=== PATIENT | female | born 1985 | race Caucasian/White ===

== ENCOUNTER 2018-01-10 18:40 | Emergency (ER) | payer MEDICAID ==
[~2018-01-10] VITALS: Ht 165.1 cm; Wt 70.8 kg
[~2018-01-10 18:40] MED LIST: CHLO473M3 PO
[2018-01-10 18:45] VITALS: BP 113/65
[2018-01-10] MEDS ORDERED: NO HOME MEDS (19:01)
[2018-01-10] MEDS ORDERED: MOME17SP BOTHNARES (19:18)
== END 2018-01-10 19:45 | disposition home or self-care (01) ==
LOC: ER 18:41
DX: J30.2 Other seasonal allergic rhinitis (principal); F15.90 Other stimulant use, unspecified, uncomplicated; Z79.899 Other long term (current) drug therapy; Z59.0 Homelessness; Z56.0 Unemployment, unspecified
CPT/HCPCS: 99283

== ENCOUNTER 2018-03-10 17:41 | Emergency (ER) | payer OTHER ==
[~2018-03-10] VITALS: Ht 162.6 cm; Wt 71.7 kg
[~2018-03-10 17:41] MED LIST changes: -CHLO473M3 PO; +NO HOME MEDS
[2018-03-10 17:42] VITALS: BP 123/77
[2018-03-10] MEDS ORDERED: ketorolac trometh inj. 60 MG/2 ML VIAL IM ONE (19:30)
[2018-03-10] MEDS ORDERED: CYCL-1 PO (19:30)
== END 2018-03-10 19:48 | disposition home or self-care (01) ==
LOC: ER 17:42
DX: M79.602 Pain in left arm (principal); M79.605 Pain in left leg; R20.0 Anesthesia of skin; F12.90 Cannabis use, unspecified, uncomplicated; F15.90 Other stimulant use, unspecified, uncomplicated; Z59.0 Homelessness; Z56.0 Unemployment, unspecified; Z79.899 Other long term (current) drug therapy
CPT/HCPCS: 96372; 99283; J1885

== ENCOUNTER 2018-03-21 09:06 | Emergency (ER) | payer OTHER ==
[~2018-03-21] VITALS: Ht 165.1 cm; Wt 71.0 kg
[~2018-03-21 09:06] MED LIST changes: +CYCL-1 PO
[2018-03-21 09:10] VITALS: BP 118/85
[2018-03-21] MEDS ORDERED: DOXY100C43 PO (09:40)
== END 2018-03-21 09:52 | disposition home or self-care (01) ==
LOC: ER 09:10
DX: N60.89 Other benign mammary dysplasias of unspecified breast (principal); F12.90 Cannabis use, unspecified, uncomplicated; F15.90 Other stimulant use, unspecified, uncomplicated; Z79.899 Other long term (current) drug therapy; Z59.0 Homelessness; Z56.0 Unemployment, unspecified
CPT/HCPCS: 99283

== ENCOUNTER 2019-02-14 07:12 | Emergency (ER) | payer OTHER ==
[~2019-02-14] VITALS: Ht 160 cm; Wt 454.0 kg
[~2019-02-14 07:12] MED LIST changes: +ONDA4TAB6 PO
[2019-02-14 07:21] VITALS: BP 145/102
[2019-02-14 07:57] LABS: UA COLLECTION TYPE CLN CATCH MIDSTREAM
[2019-02-14 07:58] LABS: CLARITY,URINE SLIGHTLY CLOUDY (Clear); COLOR,URINE YELLOW (Yellow); GLUCOSE, URINE NEGATIVE (Neg); KETONES,URINE NEGATIVE (Neg); LEUKOCYTE ESTERASE ,URINE NEGATIVE (Neg); NITRITES, URINE NEGATIVE (Neg); OCCULT BLOOD,URINE MODERATE (Neg); PROTEIN,URINE 30 mg/dl (Neg); UROBILINOGEN,URINE 0.2 E.U/dL (0.2-1.0)
[2019-02-14 07:59] LABS: URINE HCG NEGATIVE (NEG)
[2019-02-14 08:11] LABS: BACTERIA,URINE 1+ /HPF (Neg); MUCUS STRANDS NONE SEEN /LPF (Neg); SQUAMOUS EPITHELIAL CELL,UR MANY /LPF (FEW)
[2019-02-14 08:12] LABS: CAL OXALATE CRYSTALS FEW /HPF (NEGATIVE); WBC,URINE 0-4 /HPF (0-4)
== END 2019-02-14 08:37 | disposition home or self-care (01) ==
LOC: ER 07:12
DX: F15.10 Other stimulant abuse, uncomplicated (principal); Z32.02 Encounter for pregnancy test, result negative; F22 Delusional disorders; F12.90 Cannabis use, unspecified, uncomplicated; F11.90 Opioid use, unspecified, uncomplicated; F31.9 Bipolar disorder, unspecified; Z59.0 Homelessness; Z56.0 Unemployment, unspecified
CPT/HCPCS: 81001; 81025; 99283